=== PATIENT | female | born 1985 | race Caucasian/White ===

== ENCOUNTER 2018-10-20 19:49 | Emergency (ER) | payer BC ==
[~2018-10-20] VITALS: Ht 172.7 cm; Wt 58.3 kg
[2018-10-20 19:51] VITALS: BP 137/93
--- NOTE | 2018-10-20 19:59 | NUR ---
pt resented with left eye irritation and swelling that started 30 mins ago, pt stated + contact lenses, eye started itching so she removed contacts and eye started swelling up. erp at bedside for eval.
[2018-10-20] MEDS ORDERED: PROPARACAINE OPHTH 0.5%, 15ML ONE (20:03)
[2018-10-20] MEDS ORDERED: ASPI-650 PO (20:05)
== END 2018-10-20 20:39 | disposition home or self-care (01) ==
LOC: ED 20:05
DX: S05.02XA Injury of conjunctiva and corneal abrasion without foreign body, left eye, initial encounter (principal); H10.022 Other mucopurulent conjunctivitis, left eye; X58.XXXA Exposure to other specified factors, initial encounter; Y93.89 Activity, other specified; Y92.89 Other specified places as the place of occurrence of the external cause; Y99.8 Other external cause status
CPT/HCPCS: 99283